=== PATIENT | male | born 1965 | race Caucasian/White ===

== ENCOUNTER 2016-11-09 16:57 | Emergency (ER) | payer OTHER ==
[2016-11-09 17:10] VITALS: BP 170/100; PULSE 66; RESP 17; TEMP 97.3
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
== END 2016-11-09 18:09 | disposition home or self-care (01) ==
LOC: EC 16:57
DX: Z02.89 Encounter for other administrative examinations (principal)
CPT/HCPCS: 80306; 99282